=== PATIENT | female | born 1965 | race Caucasian/White ===

== ENCOUNTER → 2016-10-06 | Outpatient (CLI) | payer MEDICARE ==
[~2016-10-06] MED LIST: ZANTAC150 MG PO
== END ==
LOC: HEART 5 09:29
DX: R00.2 Palpitations (principal)
CPT/HCPCS: 93306

== ENCOUNTER → 2016-11-22 | Outpatient (CLI) | payer MEDICARE | LOC: EXRD 14:09 | DX: M79.674 Pain in right toe(s) (principal) | CPT/HCPCS: 73630 ==

== ENCOUNTER 2017-01-13 00:19 | Emergency (ER) | payer MEDICARE | END 2017-01-13 02:40 | disposition home or self-care (01) | LOC: ER1 00:19 | DX: S46.011A Strain of muscle(s) and tendon(s) of the rotator cuff of right shoulder, initial encounter (principal); S20.229A Contusion of unspecified back wall of thorax, initial encounter; V49.50XA Passenger injured in collision with unspecified motor vehicles in traffic accident, initial encounter; Y92.410 Unspecified street and highway as the place of occurrence of the external cause; Z79.82 Long term (current) use of aspirin; Z79.899 Other long term (current) drug therapy | CPT/HCPCS: 72072; 72100; 73030; 99284 ==

== ENCOUNTER → 2020-11-26 | Outpatient (CLI) | payer MEDICARE ==
[~2020-11-26] MED LIST changes: +ANTIVERT 12.512.5 MG PO; +CEFUROXIME500 MG PO; +COLACE100 MG PO; +CYCLOBENZAPRINE5 MG PO; +IBU800 MG PO; +MOBIC15 MG PO; +ONDANSETRON ODT4 MG PO; +Voltaren Gel 1 % TOP
== END ==
LOC: KOH-I 09:28
DX: R10.31 Right lower quadrant pain (principal)
CPT/HCPCS: 74176

== ENCOUNTER 2021-01-12 17:18 | Emergency (ER) | payer MEDICARE ==
[~2021-01-12 17:18] MED LIST changes: -COLACE100 MG PO
[2021-01-12 18:44] LABS: HEMOGLOBIN 13.4 gm/dl (12.3-15.3); RED BLOOD COUNT 4.43 M/UL (4.00-5.10); WHITE BLOOD COUNT 7.3 K/UL (4.5-11.0)
[2021-01-12 19:05] LABS: BUN/CREATININE RATIO 10 (0-10)
[2021-01-12] MEDS ORDERED: COLACE100 MG PO (21:46)
== END 2021-01-12 21:59 | disposition home or self-care (01) ==
LOC: ER1 17:18
PROVIDERS: Physician Assistant
DX: R10.31 Right lower quadrant pain (principal); R10.11 Right upper quadrant pain; R11.0 Nausea; E78.5 Hyperlipidemia, unspecified; I10 Essential (primary) hypertension; K21.9 Gastro-esophageal reflux disease without esophagitis; F17.200 Nicotine dependence, unspecified, uncomplicated; Z90.89 Acquired absence of other organs; Z90.710 Acquired absence of both cervix and uterus
CPT/HCPCS: 80053; 81001; 83690; 85025; 99284; Q9967

== ENCOUNTER → 2021-02-04 | Outpatient (CLI) | payer MEDICARE ==
[~2021-02-04] MED LIST changes: +COLACE100 MG PO
[2021-02-04 14:17] LABS: BUN/CREATININE RATIO 16 (0-10)
== END ==
LOC: LAB 13:24
PROVIDERS: Family Medicine
DX: E78.5 Hyperlipidemia, unspecified (principal); I10 Essential (primary) hypertension
CPT/HCPCS: 36415; 80053; 80061

== ENCOUNTER → 2021-06-14 | Outpatient (CLI) | payer MEDICARE | LOC: MAMO 09:06 | DX: Z12.31 Encounter for screening mammogram for malignant neoplasm of breast (principal) | CPT/HCPCS: 77063; 77067 ==

== ENCOUNTER → 2021-07-04 | Outpatient (CLI) | payer MEDICARE, BC | LOC: HEART 5 09:02 | DX: I25.10 Atherosclerotic heart disease of native coronary artery without angina pectoris (principal); R06.02 Shortness of breath; I08.3 Combined rheumatic disorders of mitral, aortic and tricuspid valves | CPT/HCPCS: 93306 ==

== ENCOUNTER → 2021-07-13 | Outpatient (CLI) | payer MEDICARE ==
[2021-07-13 10:17] LABS: HEMOGLOBIN 14.3 gm/dl (12.3-15.3); RED BLOOD COUNT 4.64 M/UL (4.00-5.10)
[2021-07-14 07:12] LABS: ALKALINE PHOSPHATASE, S 86 IU/L (44-121); ALT (SGPT) 12 IU/L (0-32); AST (SGOT) 14 IU/L (0-40); BILIRUBIN, TOTAL 0.3 mg/dL (0.0-1.2); BUN 11 mg/dL (6-24); BUN/CREATININE RATIO 13 (9-23); CALCIUM, SERUM 9.8 mg/dL (8.7-10.2); CARBON DIOXIDE, TOTAL 24 mmol/L (20-29); CHLORIDE, SERUM 105 mmol/L (96-106); CHOLESTEROL, TOTAL 138 mg/dL (100-199); CREATININE, SERUM 0.83 mg/dL (0.57-1.00); EGFR IF AFRICN AM 92 (>59); EGFR IF NONAFRICN AM 80 (>59); GLOBULIN, TOTAL 2.2 g/dL (1.5-4.5); GLUCOSE, SERUM 90 mg/dL (65-99); HDL CHOLESTEROL 51 mg/dL (>39); LDL CHOLESTEROL CALC 74 mg/dL (0-99); LDL/HDL RATIO 1.5 ratio (0.0-3.2); PROTEIN, TOTAL, SERUM 6.5 g/dL (6.0-8.5); SODIUM, SERUM 140 mmol/L (134-144); T. CHOL/HDL RATIO 2.7 ratio (0.0-4.4); TRIGLYCERIDES 60 mg/dL (0-149)
[2021-07-14 08:13] LABS: MAGNESIUM 2.1 mg/dL (1.6-2.3); VITAMIN D, 25-HYDROXY 29.2 ng/mL (30.0-100.0)
== END ==
LOC: MAMO 06-27 11:00 → US 06-29 10:00 → MAMO 09:39
PROVIDERS: Family Medicine
DX: R92.8 Other abnormal and inconclusive findings on diagnostic imaging of breast (principal); E78.5 Hyperlipidemia, unspecified; I10 Essential (primary) hypertension; K21.9 Gastro-esophageal reflux disease without esophagitis; M85.80 Other specified disorders of bone density and structure, unspecified site; Z87.39 Personal history of other diseases of the musculoskeletal system and connective tissue; Z79.899 Other long term (current) drug therapy
CPT/HCPCS: 36415; 76641-RT; 77065; 80053; 80061; 82607; 83735; 85027; G0279

== ENCOUNTER → 2021-07-25 | Outpatient (CLI) | payer MEDICARE | LOC: KOH-I 13:18 | DX: F17.210 Nicotine dependence, cigarettes, uncomplicated (principal) | CPT/HCPCS: 71271 ==

== ENCOUNTER → 2022-03-10 | Outpatient (CLI) | payer MEDICARE | LOC: US 13:22 | DX: R92.8 Other abnormal and inconclusive findings on diagnostic imaging of breast (principal) | CPT/HCPCS: 76641-RT ==